=== PATIENT | female | born 1950 | race Caucasian/White ===

== ENCOUNTER 2016-07-13 15:21 | Outpatient (CLI) | payer SELFPAY ==
--- NOTE | 2016-07-14 06:17 | Diagnostic Imaging Report ---
Report Submission Date: Jul 14, 2016 12:03:48 AM CONGRESSIONAL REPRESENTATIVE Patient ~ Study Name: TODD DAINEL ~ Date: Jul 13, 2016 3:47:08 PM CONGRESSIONAL REPRESENTATIVE ~ Modality Type: CR Gender: F ~ Description: SPINE : 54 ~ Institution: [facility] Physician: AMADO CALDERON ~ ~ ~ ~ Lumbar spine - three views Clinical history: ~Worsening low back pain for 3 years. Findings: ~Examination of the lumbar spine in AP, lateral and lateral coned- down views demonstrates spondylosis with small anterior and lateral osteophytes in the mid and lower lumbar vertebrae. ~There is mild dextrocurvature of the lumbar spine that may be related to muscle spasm or patient positioning. ~The pedicles are intact and the paravertebral soft tissues are within normal limits. ~The facet joints are narrowed in the mid and lower lumbar spine. ~ There is no evident fracture and no lytic or blastic lesion. Impression: 1. ~Spondylosis. 2. ~Mild dextroscoliosis. ~ Electronically signed on Jul 14, 2016 12:03:48 AM CONGRESSIONAL REPRESENTATIVE by: Marcellus DAVIS
--- NOTE | 2016-07-14 06:18 | Diagnostic Imaging Report ---
Report Submission Date: Jul 14, 2016 12:08:17 AM FIRE OFFICER Patient ~ Study Name: TODD DANIEL ~ Date: Jul 13, 2016 3:57:16 PM FIRE OFFICER ~ Modality Type: CR Gender: F ~ Description: LOWER EXTREMITY : 54 ~ Institution: [facility] Physician: AMADO CLADERON ~ ~ ~ ~ Right knee - three views Clinical history: ~Pain for about 3 months. Findings: ~Examination of the right knee in AP, lateral and sunrise views demonstrates degenerative changes in the knee with narrowing of the joint space worse medially. ~There is mild prominence of the tibial spines. ~There is no evident fracture or joint effusion. ~Patellofemoral space is narrowed. Impression: 1. ~Degenerative changes. 2. ~No fracture. ~ Electronically signed on Jul 14, 2016 12:08:17 AM FIRE OFFICER by: Marcellus DAVIS
== END 2016-07-13 15:22 ==
LOC: RAD 15:21
PROVIDERS: ATTEND Family Medicine
DX: M47.896 Other spondylosis, lumbar region (principal); M41.80 Other forms of scoliosis, site unspecified; M17.11 Unilateral primary osteoarthritis, right knee; M54.5 Low back pain
CPT/HCPCS: 72100; 73562

== ENCOUNTER 2017-10-22 11:22 | Outpatient (CLI) | payer OTHER ==
[2017-10-22 11:56] LABS: BASOPHILS % 0.8 (0.0-1.5); EOSINOPHILS % 3.1 % (0.0-6.8); MEAN CORPUSCULAR HEMOGLOBIN 30.6 pg (28.0-34.0); MONOCYTES % 5.7 % (0.0-11.0); NEUTROPHILS # 2.9 # k/uL (1.4-7.7)
[2017-10-22 12:18] LABS: eGFR (African) > 60; eGFR (Non-African) > 60
== END 2017-10-22 11:23 ==
LOC: LAB 11:22
PROVIDERS: ATTEND Family Medicine
DX: E11.9 Type 2 diabetes mellitus without complications (principal); I10 Essential (primary) hypertension
CPT/HCPCS: 36415; 80053; 80061; 83036; 85025

== ENCOUNTER 2017-12-28 10:46 | Outpatient (CLI) | payer OTHER | END 2017-12-28 10:48 | LOC: LAB 10:46 | PROVIDERS: ATTEND Family Medicine | DX: E11.9 Type 2 diabetes mellitus without complications (principal) | CPT/HCPCS: 36415; 83036 ==

== ENCOUNTER 2018-06-03 12:18 | Outpatient (CLI) | payer OTHER | END 2018-06-03 12:20 | LOC: LAB 12:18 | PROVIDERS: ATTEND Family Medicine | DX: E11.9 Type 2 diabetes mellitus without complications (principal) | CPT/HCPCS: 36415; 83036 ==

== ENCOUNTER 2018-12-04 13:49 | Outpatient (CLI) | payer OTHER | END 2018-12-04 13:54 | disposition home or self-care (01) | LOC: LAB 13:49 | PROVIDERS: ATTEND Family Medicine | DX: E11.9 Type 2 diabetes mellitus without complications (principal) | CPT/HCPCS: 36415; 83036 ==

== ENCOUNTER 2019-03-05 09:45 | Outpatient (CLI) | payer OTHER ==
[2019-03-05 10:11] LABS: BASOPHILS % 0.3 % (0.0-1.5); NEUTROPHILS # 3.3 # k/uL (1.4-7.7)
[2019-03-05 10:39] LABS: HDL 30 mg/dL (>40); eGFR (Non-African) > 60
== END 2019-03-05 09:48 ==
LOC: LAB 09:45
PROVIDERS: ATTEND Family Medicine
DX: E11.9 Type 2 diabetes mellitus without complications (principal); I10 Essential (primary) hypertension
CPT/HCPCS: 36415; 80053; 80061; 85025

== ENCOUNTER 2019-05-05 11:06 | Outpatient (CLI) | payer OTHER ==
[2019-05-05 11:26] LABS: BASOPHILS % 0.9 % (0.0-1.5); NEUTROPHILS # 2.9 # k/uL (1.4-7.7)
== END 2019-05-05 11:11 ==
LOC: LAB 11:06
PROVIDERS: ATTEND Family Medicine
DX: D50.9 Iron deficiency anemia, unspecified (principal); E11.9 Type 2 diabetes mellitus without complications
CPT/HCPCS: 36415; 83036; 85025